=== PATIENT | male | born 1970 | race Caucasian/White ===

== ENCOUNTER 2025-02-21 13:53 | Emergency (ER) | payer OTHER ==
[~2025-02-21] VITALS: Ht 165.1 cm; Wt 64.5 kg
[~2025-02-21 13:53] MED LIST: TNFMISC
[2025-02-21 14:04] VITALS: TEMP 98.2
[2025-02-21] MEDS ORDERED: 0.9% SODIUM CHLORIDE 10 ML SYRINGE IVP PRN (16:15)
[2025-02-21 16:32] LABS: APPEARANCE,URINE CLEAR (CLEAR); BILIRUBIN,URINE NEGATIVE (NEGATIVE); COLOR,URINE COLORLESS (YELLOW); GLUCOSE, URINE (UA) 300-500 mg/dL (NEGATIVE); KETONES,URINE NEGATIVE (NEGATIVE); LEUKOCYTE ESTERASE ,URINE NEGATIVE (NEGATIVE); NITRATE,URINE NEGATIVE (NEGATIVE); OCCULT BLOOD,URINE NEGATIVE (NEGATIVE); PH,URINE 5.5 (5.0-8.0); PROTEIN,URINE TRACE mg/dL (NEGATIVE); SPECIFIC GRAVITIY, URINE 1.009 (1.003-1.030); UROBILINOGEN,URINE <=1.0 mg/dL (<=1.0)
[2025-02-21 16:39] LABS: BASOPHILS % (AUTO) 0.9 % (0.0-2.0); EOSINOPHILS % (AUTO) 8.7 % (1.0-6.0); HEMATOCRIT 33.9 % (41-53); HEMOGLOBIN 11.7 g/dL (13.5-17.5); LYMPHOCYTES # (AUTO) 1.7 K/uL (1.0-4.8); LYMPHOCYTES % (AUTO) 26.1 % (22.0-44.0); MEAN CORPUSCULAR HEMOGLOBIN 28.8 pg (26.0-34.0); MEAN CORPUSCULAR HGB CONC 34.6 G/dL (31.0-37.0); MEAN CORPUSCULAR VOLUME 83 fL (80-100); MONOCYTES # (AUTO) 0.4 K/uL (0.1-1.0); MONOCYTES % (AUTO) 5.9 % (2.0-9.0); NEUTROPHILS # (AUTO) 3.7 K/uL (1.8-7.7); NEUTROPHILS % (AUTO) 58.4 % (40.0-70.0); PLATELET COUNT (AUTO) 298 K/uL (150-450); RED BLOOD CELL COUNT(AUTO) 4.07 MIL/uL (4.50-5.90); RED CELL DISTRIBUTION WIDTH 14.2 % (11.5-14.5); WHITE BLOOD COUNT (AUTO) 6.4 K/uL (4.5-11.0)
[2025-02-21 16:44] LABS: ANION GAP 7 mmol/L (8-16); CALCIUM, TOTAL 9.3 mg/dL (8.8-10.5); CARBON DIOXIDE 29 mmol/L (22-29); CHLORIDE 103 mmol/L (98-107); CREATININE 0.87 mg/dL (0.60-1.30); GLOMERULAR FILTR. RATE CALC > 60 mL/min (>60); GLUCOSE,RANDOM 190 mg/dL (70-110); POTASSIUM 4.8 mmol/L (3.5-5.1); SODIUM SERUM 139 mmol/L (136-145); UREA NITROGEN, BLOOD 17 mg/dL (7-18)
[2025-02-21] MEDS: SODIUM CHLORIDE 0.9% 1,950 ML IV ONE (16:44)
[2025-02-21 16:47] LABS: RBC,URINE None Seen /HPF (0-2)
[2025-02-21 16:48] LABS: PROTHROMBIN TIME 10.7 SEC (9.4-11.6)
[2025-02-21 16:48] LABS: BACTERIA,URINE Rare /HPF (None Seen); WBC,URINE 0-2 /HPF (0-5)
[2025-02-21 16:52] LABS: LACTIC ACID 1.9 mmol/L (0.4-2.0); TROPONIN I-HIGH SENSITIVITY Less Than 4 ng/L (<76)
[2025-02-21 16:55] LABS: B-TYPE NATRIURETIC PEPTIDE 33 pg/mL (0-100)
[2025-02-21] MEDS: VANCOMYCIN 1GM/WATER(PEG/NADA) 200 ML IV ONE (17:32)
[2025-02-21 19:42] VITALS: BP 145/76; PULSE 89; RESP 15; O2SAT 98
[2025-02-21] MEDS: HYDROCODONE/ACETAMINOPHEN 5-325 MG TABLET PO ONE (19:57)
== END 2025-02-21 20:18 | disposition short-term general hospital (02) ==
LOC: EMS 13:53
DX: L02.416 Cutaneous abscess of left lower limb (principal); L03.116 Cellulitis of left lower limb; E11.9 Type 2 diabetes mellitus without complications; F10.90 Alcohol use, unspecified, uncomplicated; R06.02 Shortness of breath; Z88.0 Allergy status to penicillin; Z89.512 Acquired absence of left leg below knee; Y90.9 Presence of alcohol in blood, level not specified
CPT/HCPCS: 99285; 96365; 71045; 96361; 96366; 80048; 87205; 81001; 83605; 83880; 84484; 85025; 85610; 87040; 36415; 87186; 82962; 93005; 87070; 84145; J7030; J3490